=== PATIENT | female | born 1985 | race Caucasian/White ===

== ENCOUNTER 2018-08-24 04:16 | Day surgery (SDC) | payer OTHER ==
[~2018-08-24] VITALS: Ht 165.1 cm; Wt 96.8 kg
[~2018-08-24 04:16] MED LIST: DOCU240C31 PO; IBUP-1222 PO; OXYC-302 PO
[2018-08-24] MEDS ORDERED: MORPHINE SULFATE 4 MG/ML, 1ML ONE ×2 (04:49→06:21)
[2018-08-24] MEDS ORDERED: ONDANSETRON 2MG/ML, 2ML ONE (04:49)
[2018-08-24] MEDS ORDERED: FAMOTIDINE 20 MG/2 ML ONE (04:50)
[2018-08-24] MEDS ORDERED: SODIUM CHLORIDE FLUSH 10ML SYR IVF ONE (05:00)
[2018-08-24] MEDS ORDERED: ONDANSETRON 2MG/ML, 2ML IVPush ONE (05:00)
[2018-08-24] MEDS ORDERED: FAMOTIDINE 20 MG/2 ML IVP ONE (05:00)
[2018-08-24] MEDS: MORPHINE SULFATE 4 MG/ML, 1ML IVPush PRN ×2 (05:11→06:23)
[2018-08-24 05:27] LABS: MICROSCOPIC NOT IND
[2018-08-24 05:28] LABS: BASOPHILS # (AUTO) 0.03 x10^3/uL (0-0.1); BASOPHILS % (AUTO) 0 % (0-1); EOSINOPHILS # (AUTO) 0.15 x10^3/uL (0-0.4); EOSINOPHILS % (AUTO) 2 % (1-7); LYMPHOCYTES # (AUTO) 2.89 x10^3/uL (1-3.4); LYMPHOCYTES % (AUTO) 31 % (22-44); MD NO; MEAN CORPUSCULAR HEMOGLOBIN 27.4 pg (27.0-34.8); MEAN CORPUSCULAR HGB CONC 33.3 g/dL (32.4-35.8); MEAN CORPUSCULAR VOLUME 82.3 fL (80-100); MEAN PLATELET VOLUME 8.3 fL (7.4-10.4); MONOCYTES # (AUTO) 0.49 x10^3/uL (0.2-0.8); MONOCYTES % (AUTO) 5 % (2-9); NEUTROPHILS # (AUTO) 5.77 x10^3/uL (1.8-6.8); NEUTROPHILS % (AUTO) 62 % (42-75); PLATELET COUNT 274 x10^3/uL (130-400); RED BLOOD COUNT 5.02 x10^6/uL (3.82-5.3)
[2018-08-24 05:33] LABS: CULTURE INDICATED? NO
[2018-08-24 05:40] LABS: ALBUMIN 3.5 g/dL (3.4-5.0); ANION GAP 10 mmol/L (5-15); CALCIUM 8.4 mg/dL (8.5-10.1); CHLORIDE 107 mmol/L (98-107)
[2018-08-24 05:46] LABS: ALANINE AMINOTRANSFERASE 25 U/L (12-78); ALKALINE PHOSPHATASE 70 U/L (45-117); BILIRUBIN,TOTAL 0.4 mg/dL (0.2-1.0); CREATININE 1.05 mg/dL (0.55-1.02); TOTAL PROTEIN 6.9 g/dL (6.4-8.2)
--- NOTE | 2018-08-24 06:10 | NUR ---
POC DISCUSSED. PT STATES PAIN IS TOLERABLE AT THIS TIME. PT AWARE TO ASK FOR MORE PAIN MEDS IF SHE WISHES. PT STATES UNDERSTANDING. PT AWARE NPO AT THIS TIME. PT AND SPOUSE DENY FURTHER NEEDS AT THIS TIME. CALL LIGHT ON LAP.
[2018-08-24] MEDS ORDERED: CEFOTETAN PMX 1GM/50ML 50 ML ONE (06:21)
[2018-08-24] MEDS ORDERED: POTASSIUM CHLORIDE 20 MEQ in SODIUM CHLORIDE 0.9% 1,000 ML IV ONE (06:25)
[2018-08-24] MEDS ORDERED: CEFOTETAN PMX 1GM/50ML 50 ML IVPB ONE (06:30)
[2018-08-24] MEDS ORDERED: HYDROmorphone 1 MG/ML, 1ML IVPush PRN (06:30)
[2018-08-24] MEDS ORDERED: ONDANSETRON 2MG/ML, 2ML IVPush PRN ×2 (06:30→11:30)
--- NOTE | 2018-08-24 06:35 | NUR ---
PT MEDICATED PER MAR PER REQUEST. POC DISCUSSED. PT AND SPOUSE DENY FURTHER NEEDS AT THIS TIME.
[2018-08-24] MEDS ORDERED: SODIUM CHLORIDE 0.9% 1,000 ML IV ONE (06:41)
--- NOTE | 2018-08-24 06:55 | NUR ---
[facility]AR HAND-OFF REPORT RECEIVED FROM ASHLEY GARCIA. ASSUMED CARE OF PATIENT.
[2018-08-24 07:01] VITALS: BP 99/66
--- NOTE | 2018-08-24 07:20 | NUR ---
SBAR TELEPHONE HAND-OFF REPORT GIVEN TO PRE-OP RN JOY.
--- NOTE | 2018-08-24 08:07 | NUR ---
SBAR TELEPHONE HAND-OFF REPORT TO ASHLEY LEBRON.
[2018-08-24] MEDS ORDERED: BUPIVACAINE/PF 0.25% ONE (08:23)
[2018-08-24] MEDS ORDERED: EPINEPHRINE 1 MG/ML, 1ML ONE (08:23)
[2018-08-24] MEDS ORDERED: FENTANYL PF 100 MCG/2ML ONE ×2 (08:53→09:26)
[2018-08-24] MEDS ORDERED: ROCURONIUM 10MG/ML,5ML ONE (09:07)
[2018-08-24] MEDS ORDERED: NEOSTIGMINE 1 MG/ML, 10ML ONE (09:07)
[2018-08-24] MEDS ORDERED: SUCCINYLCHOLINE 20 MG/ML, 10ML ONE (09:07)
[2018-08-24] MEDS ORDERED: PROPOFOL 10 MG/ML, 20ML ONE (09:07)
[2018-08-24] MEDS ORDERED: GLYCOPYRROLATE 0.2MG/1ML, 5ML ONE (09:07)
[2018-08-24] MEDS ORDERED: KETOROLAC 30 MG/1 ML ONE (09:07)
[2018-08-24] MEDS ORDERED: DEXAMETHASONE 4 MG/ML, 1ML ONE (09:07)
[2018-08-24] MEDS ORDERED: BUPIVACAINE/PF-EPI 0.25% 1:200K INFIL ONE (09:29)
[2018-08-24] MEDS ORDERED: HYDROmorphone 2 MG/ML, 1ML IVPush PRN (10:00)
[2018-08-24] MEDS ORDERED: hydrALAzine 20 MG/ML, 1ML IV PRN (10:00)
[2018-08-24] MEDS ORDERED: DIPHENHYDRAMINE 50 MG/ML, 1ML IVPush PRN (10:00)
[2018-08-24] MEDS ORDERED: FENTANYL PF 100 MCG/2ML IV PRN (10:00)
[2018-08-24] MEDS ORDERED: MEPERIDINE/PF 25MG/0.5ML IVPush PRN (10:00)
[2018-08-24] MEDS ORDERED: METOPROLOL 1 MG/ML, 5ML IV PRN (10:00)
[2018-08-24] MEDS ORDERED: HALOPERIDOL 5 MG/ML IV PRN (10:00)
[2018-08-24] MEDS ORDERED: PROMETHAZINE 25 MG/ML, 1ML IV PRN (10:00)
[2018-08-24] MEDS ORDERED: OXYcodone 5 MG/5 ML ORAL.SOL UDC PO PRN (10:00)
[2018-08-24] MEDS ORDERED: PROCHLORPERAZINE 5 MG/ML, 2ML IV PRN (10:00)
[2018-08-24] MEDS ORDERED: LABETALOL 5MG/ML, 20ML IV PRN (10:00)
[2018-08-24] MEDS ORDERED: MORPHINE SULFATE 4 MG/ML, 1ML IVPush PRN (11:30)
[2018-08-24] MEDS: HYDROcodone/APAP 5/325 TABLET PO PRN ×2 (12:56→13:42)
[2018-08-24] MEDS ORDERED: HYDR-3240 PO (15:32)
[2018-08-24] MEDS ORDERED: KETOROLAC 30 MG/1 ML IV PRN (15:45)
== END 2018-08-24 17:45 | disposition home or self-care (01) ==
LOC: ED 06:20 → EDIP 06:25 → UNDOADMIN 06:25 → OR 09:15 → EDIP 10:53 → 4NOR 10:53 → UNDODISIN 17:45 → OR 17:45
PROVIDERS: ATTEND Emergency Medicine
DX: K80.12 Calculus of gallbladder with acute and chronic cholecystitis without obstruction (principal); Z98.890 Other specified postprocedural states
CPT/HCPCS: 36415; 47562; 76700; 80053; 81003; 83690; 84703; 85025; 88304; 93005; 96365; 96375; 96376; 99285; J0171; J0330; J1100; J1885; J2405; J2704; J2710; J3010; J3490; J7030; G0378

== ENCOUNTER 2019-11-09 19:18 | Emergency (ER) | payer OTHER ==
[~2019-11-09] VITALS: Ht 165.1 cm; Wt 97.4 kg
[~2019-11-09 19:18] MED LIST changes: +HYDR-3240 PO
--- NOTE | 2019-11-09 19:43 | NUR ---
CLINICAL STAFF EDUCATOR: PT. CALLED TO ROOM FROM LOBBY AT THIS TIME.
[2019-11-09] MEDS ORDERED: METHOCARBAMOL 750 MG TABLET PO ONE (20:00)
[2019-11-09] MEDS ORDERED: OXYcodone/APAP 5/325MG TABLET PO ONE (20:00)
[2019-11-09] MEDS ORDERED: METHOCARBAMOL 750 MG TABLET ONE (20:09)
[2019-11-09] MEDS ORDERED: OXYcodone/APAP 5/325MG TABLET ONE (20:10)
[2019-11-09 20:13] VITALS: BP 135/110
--- NOTE | 2019-11-09 20:13 | NUR ---
PT MEDICATED FOR PAIN, AWAITING XRAY RESULT
== END 2019-11-09 21:33 | disposition home or self-care (01) ==
LOC: ED 19:45
DX: G89.11 Acute pain due to trauma (principal); M25.552 Pain in left hip; W10.9XXA Fall (on) (from) unspecified stairs and steps, initial encounter; Y93.89 Activity, other specified; Y92.009 Unspecified place in unspecified non-institutional (private) residence as the place of occurrence of the external cause; Y99.8 Other external cause status
CPT/HCPCS: 99283